=== PATIENT | female | born 1965 | race African-American/Black ===

== ENCOUNTER 2021-07-04 13:36 | Emergency (ER) | payer OTHER ==
[~2021-07-04] VITALS: Ht 177.8 cm; Wt 83.9 kg
[~2021-07-04 13:36] MED LIST: ALBUTEROL2.5 MG/31; BACTRIM DS TAB1 EACH PO; ESTRACE1 MG PO; HYDROCHLOROTHIA25 M2 PO; IBUPROFEN 600600 M1 PO; KEFLEX500 MG PO; MOBIC15 MG PO; NORCO 5-325 TA1 EACH PO; NORVASC5 MG PO; TRAMADOL 50 MG50 MG PO; VALIUM5 MG PO
[2021-07-04] MEDS ORDERED: OMEPRAZOLE40 MG PO (14:13)
[2021-07-04] MEDS ORDERED: AMITRIPTYLINE H25 M4 PO (14:13)
[2021-07-04] MEDS ORDERED: PERCOCET 10-321 EAC1 PO (14:14)
[2021-07-04] MEDS ORDERED: PAROXETINE CR12.5 MG PO (14:14)
[2021-07-04] MEDS ORDERED: ADVAIR 250-501 EACH INH (14:14)
[2021-07-04] MEDS ORDERED: NEURONTIN100 MG PO (14:15)
[2021-07-04] MEDS ORDERED: VITAMIN D31 ML PO (14:15)
[2021-07-04] MEDS ORDERED: B12-FOLIC ACID1 EACH PO (14:15)
[2021-07-04] MEDS ORDERED: BIOTIN1 MG PO (14:16)
[2021-07-04] MEDS ORDERED: CALICUM 500+D1 EACH PO (14:16)
[2021-07-04] MEDS ORDERED: VITAMINC500 PO (14:16)
[2021-07-04 16:49] VITALS: BP 160/89
== END 2021-07-04 16:50 | disposition home or self-care (01) ==
LOC: ER 13:36
PROVIDERS: Emergency Medicine
DX: J20.9 Acute bronchitis, unspecified (principal); Z20.822 Contact with and (suspected) exposure to COVID-19; J45.909 Unspecified asthma, uncomplicated; I10 Essential (primary) hypertension; E78.00 Pure hypercholesterolemia, unspecified; F17.210 Nicotine dependence, cigarettes, uncomplicated; Z90.711 Acquired absence of uterus with remaining cervical stump; Z79.899 Other long term (current) drug therapy; Z91.02 Food additives allergy status; Z91.040 Latex allergy status; Z91.013 Allergy to seafood